=== PATIENT | male | born 1965 | race Caucasian/White ===

== ENCOUNTER 2019-11-21 08:53 | Emergency (ER) | payer SELFPAY ==
[2019-11-21 09:01] VITALS: BP 140/95; PULSE 85; RESP 16; TEMP 36.6; O2SAT 100; BMI 21.7
--- NOTE | 2019-11-21 09:05 | CT_ITS ---
PROCEDURE: CT ABDOMEN PELVIS WO CON CLINICAL INDICATION: LOWER ABD PAIN LOWER ABD PAIN and diarrhea COMPARISON: ABDPELW/O CT ABD PELVIS W/O CONTRAST from 07/28/2015 TECHNIQUE: IV Contrast: None Oral Contrast 20ml Gastroview Axial images obtained with sagittal and coronal reformats. All CT scans at the facility use one or more dose reduction, viz: automated exposure control, ma/kV adjustment per patient size (including targeted exams where dose is matched to indication, i.e. head), or iterative reconstruction technique. FINDINGS: Lower thorax: Minimal bilateral basilar atelectasis ABDOMEN: Liver: No masses or biliary dilatation. Gallbladder: Nondistended. No radio opaque stones. Pancreas: No masses or peripancreatic fluid collections. Spleen: unremarkable Adrenals: unremarkable Kidneys/ureters: The kidneys are normal size and there are no calculi and there is no obstructive uropathy PELVIS: Reproductive: unremarkable Bladder: The bladder is moderately distended with urine and appears normal. The prostate is normal in size. Appendix: I do not definitely identify the appendix but no pericecal inflammatory changes. There are multiple surgical clips right lower quadrant. These were seen previously. ABDOMEN & PELVIS: Stomach bowel: The stomach and small bowel appears grossly normal. There is scattered stool and gas along with oral contrast seen throughout the colon. Peritoneum: No abnormal fluid collections. No obvious inflammatory changes. No free air. Lymph nodes: No enlarged lymph nodes apparent. Vasculature: No evidence of abdominal aortic aneurysm. No retroperitoneal hemorrhage evident. Bones: There are mild degenerate changes lower thoracic and lower lumbar spine. IMPRESSION: Essentially unremarkable study, I see no acute abdominal or pelvic pathology Dictated by: Dr. Loco Patino MD 11/21/2019 11:[address] Loco Patino MD in [facility] 11/21/2019 11:25
--- NOTE | 2019-11-21 09:07 | HMH.EDABDPAI ---
ED Disposition Clinical Impression: Abdominal pain Disposition: Home, Self-Care Condition on Discharge: Good Instructions: DI for Acute Abdomen Additional Instructions: Follow-up with your primary care provider within 24 hours for reevaluation. Return to the emergency department immediately if symptoms are worse. Referrals: Provider,Referral, [Primary Care Provider] - Time of Disposition: 12:05 - Critical Care Critical Care Time: No Attestation: On 11/21/19, the high probability of a clinically significant, sudden or life threatening deterioration of the following system(s) required my full and direct attention, intervention and personal management. The time I documented below is in addition to time spent performing reported procedures but includes the following listed in this critical care notation. Medical Decision Making - Medical Records Medical records reviewed: Yes: I reviewed the patient's medical records. - Cory Inquiry Pt receiving controlled substance: No Vital Signs: 11/21/19 09:01 11/21/19 10:35 Temperature 97.8 F Temperature Source Oral Pulse Rate [Right Radial] 85 69 Respiratory Rate 16 Blood Pressure [Right Arm] 140/95 H 134/66 Blood Pressure Mean [Right Arm] 110 88 Blood Pressure Source [Right Arm] Automatic Cuff Automatic Cuff Blood Pressure Position [Right Arm] Sitting Sitting 02 Sat by Pulse Oximetry 100 99 Oxygen Delivery Method Room Air Room Air - Lab Data Lab Results 11/21/19 09:05: WBC 8.6, RBC 5.24, Hgb 15.0, Hct 48.1, MCV 91.8, MCH 28.6, MCHC 31.2 L, RDW 14.3, Plt Count 346, MPV 6.9 L, Neut % (Auto) 55.9, Lymph % (Auto) 36.7, [place] % (Auto) 5.1, Eos % (Auto) 1.8, Baso % (Auto) 0.4, Neut # (Auto) 4.8, Lymph # (Auto) 3.2, [place] # (Auto) 0.4, Eos # (Auto) 0.2, Baso # (Auto) 0.0 11/21/19 09:05: Sodium 142, Potassium 3.9, Chloride 104, Carbon Dioxide 25, Anion Gap 16.9 H, BUN 12, Creatinine 0.98, Estimated Creat Clear 76, Estimated GFR 80, Est GFR ( Amer) 97, Glucose 115 H, Calcium 8.7, Total Bilirubin 0.2, AST 15, ALT 26, Alkaline Phosphatase 92, Total Protein 7.5, Albumin 4.0, Globulin 3.5 H, Albumin/Globulin Ratio 1.1, Amylase 66, Lipase 114 11/21/19 09:05: Troponin I < 0.02 11/21/19 09:23: Urine Color Yellow, Urine Appearance Clear, Urine pH 5.5, Ur Specific [place] >= 1.030, Urine Protein Negative, Urine Glucose (UA) Negative, Urine Ketones Negative, Urine Blood Negative, Urine Nitrate Negative, Urine Bilirubin Negative, Urine Urobilinogen 0.2, Ur Leukocyte Esterase Negative, Urine RBC None, Urine WBC Occasional, Ur Squamous Epith Cells Occasional, Urine Bacteria None Result diagrams: 11/21/19 09:05 11/21/19 09:05 Orders (Tests/Meds): ED MEDICATIONS Discontinued Medications Generic Name Dose Route Start Last Admin Trade Name Freq PRN Reason Stop Dose Admin Diatrizoate Meglum/Diatrizoate Sod 30 ml 11/21/19 09:07 11/21/19 09:14 Gastrografin 66%-10% 30ml PO 11/21/19 09:08 30 ml ONCE ONE Administration Sodium Chloride 1,000 mls @ 999 mls/hr 11/21/19 09:07 11/21/19 09:14 Sod Chlor 0.9% 1000ml Bag IV 11/21/19 10:07 999 mls/hr .Q1H1M ONE Administration - CT Data CT Scan: Abdomen, Pelvis Time Received: 12:[address] Reviewed: Yes: I have reviewed the patient's CT results, I have viewed the radiologist's interpretation Preliminary Findings: Normal/NAD Findings Narrative: Patient: Osvaldo Worley MR#: [id number] : 1965 Acct:[id number] Age/Sex: 54 / M ADM Date: 11/21/19 Loc: ER Attending Dr: Ordering Physician: Eliud Walters MD Date of Service: 11/21/19 Procedure(s): CT abdomen pelvis wo con Accession Number(s): [id number] cc: Robert Patino ; Eliud Walters MD; Provider,Referral MD~ PROCEDURE: CT ABDOMEN PELVIS WO CON CLINICAL INDICATION: LOWER ABD PAIN LOWER ABD PAIN and diarrhea COMPARISON: ABDPELW/O CT ABD PELVIS W/O CONTRAST from 07/28/2015 TECHN
[2019-11-21 09:15] LABS: Basophils % 0.4 % (0.1-2.0); Eosinophils # 0.2 K/mm3 (0.0-0.4); Eosinophils % 1.8 % (0.1-12.0); Hematocrit 48.1 % (42.0-52.0); Lymphocytes # 3.2 K/mm3 (0.7-4.5); Lymphocytes % 36.7 % (10-50); Mean Corpuscular HGB Conc 31.2 g/dL (31.8-35.4); Mean Corpuscular Hemoglobin 28.6 pg (27.0-31.2); Mean Corpuscular Volume 91.8 fl (80-94); Mean Platelet Volume 6.9 fl (7.4-10.4); Monocytes # 0.4 K/mm3 (0.1-1.0); Monocytes % 5.1 % (1.7-9.3); Neutrophils # 4.8 K/mm3 (1.8-7.8); Neutrophils % 55.9 % (37.0-80.0); Platelet Count 346 K/mm3 (142-424); Red Blood Count 5.24 M/mm3 (4.60-6.20); Red Cell Distribution Width 14.3 % (11.5-17.5); White Blood Count 8.6 K/mm3 (4.8-10.8)
--- NOTE | 2019-11-21 09:18 | PC.NURSE ---
NOTIFIED RAD THAT PT HAS FINISHED DRINKING HIS PO CONTRAST
--- NOTE | 2019-11-21 09:25 | PC.NURSE ---
URINE SENT TO LAB
[2019-11-21 09:28] LABS: Alanine Aminotransferase 26 U/L (12-78); Albumin/Globulin Ratio 1.1 (1.1-1.8); Alkaline Phosphatase 92 U/L (46-116); Amylase 66 U/L (25-115); Anion Gap 16.9 mEq/L (5-15); Aspartate Amino Transferase 15 U/L (15-37); Bilirubin,Total 0.2 mg/dL (0.2-1.0); Blood Urea Nitrogen 12 mg/dL (7-18); Calcium 8.7 mg/dL (8.5-10.1); Carbon Dioxide 25 mmol/L (21.0-32.0); Chloride 104 mmol/L (98-107); Creatinine Clearance Estimated 76 mL/min (50-200); Creatinine,Serum 0.98 mg/dL (0.70-1.30); Estimated Glomerular Filt Rate 80 ml/min (>60); GFR (African American) 97 ML/MIN (>60); Globulin 3.5 gm/dl (1.3-3.2); Glucose 115 mg/dL (74-106); Lipase 114 u/L (73-393); Potassium 3.9 mmoL/L (3.5-5.1); Sodium 142 mmol/L (136-145); Total Protein,Serum 7.5 gm/dL (6.4-8.2)
[2019-11-21 09:32] LABS: Microscopic, Urine URINE MICROSCOPIC (MICROSCOPIC)
[2019-11-21 09:34] LABS: Appearance,Urine CLEAR (Clear); Bilirubin,Urine Negative (Negative); Blood, Urine Negative (Negative); Color,Urine YELLOW (Yellow); Glucose,Urine (UA) Negative (Negative); Ketones,Urine Negative (Negative); Leukocyte Esterase,Urine Negative (Negative); Nitrate,Urine Negative (Negative); PH,Urine 5.5 (5.0-8.5); Protein,Urine Negative (Negative); Specific Gravity, Urine >= 1.030 (1.005-1.030); Urobilinogen,Urine 0.2 EU/dl (0.2)
[2019-11-21 10:08] LABS: Squamous Epithelial Cell,Urine Occasional #/hpf (0-5); WBC,Urine Occasional #/hpf (0-3)
[2019-11-21 10:35] VITALS: BP 134/66; PULSE 69; O2SAT 99
--- NOTE | 2019-11-21 10:53 | PC.NURSE ---
Pt to rad
--- NOTE | 2019-11-21 10:55 | PC.NURSE ---
PT TO RAD
--- NOTE | 2019-11-21 11:12 | PC.NURSE ---
Pt returned from rad
--- NOTE | 2019-11-21 11:12 | PC.NURSE ---
PT RETURNED FROM RAD
[2019-11-21 12:25] LABS: Troponin I < 0.02 ng/ml (0.00-0.06)
--- NOTE | 2019-11-21 12:26 | PC.NURSE ---
Pt up to restroom
[2019-11-21 12:44] VITALS: BP 134/66; PULSE 69; RESP 16; TEMP 36.9; O2SAT 99
== END 2019-11-21 12:45 | disposition home or self-care (01) ==
PROVIDERS: Emergency Provider Emergency Medicine
DX: R10.30 Lower abdominal pain, unspecified (principal); R19.7 Diarrhea, unspecified; Z98.890 Other specified postprocedural states; Z72.0 Tobacco use
CPT/HCPCS: 74176; 80053; 81001; 82150; 83690; 84484; 85025; 96365; 99284

== ENCOUNTER 2020-07-28 01:48 | Emergency (ER) | payer MEDICAID, SELFPAY ==
[2020-07-28 01:51] VITALS: BP 109/78; PULSE 74; RESP 16; TEMP 36.7; O2SAT 98; BMI 21.7
--- NOTE | 2020-07-28 02:03 | XR_ITS ---
PROCEDURE: XR CHEST 2V CLINICAL HISTORY: chest pain COMPARISON: CR XR RIBS BI MIN 4V W CXR1V from 08/09/2019 FINDINGS: The cardiomediastinal silhouette and pulmonary vascularity are within normal limits. The lungs are clear without infiltrates, suspicious nodules, or pleural effusions. There is partial fusion of the T10 and T11 vertebral bodies IMPRESSION: No acute findings. Dictated by: Cyrus Rapp MD 07/28/2020 05:29 Cyrus Rapp MD in [facility] 07/28/2020 05:29
--- NOTE | 2020-07-28 02:04 | ECG_ITS ---
APPROVED REPORT Exam: Resting ECG HR:74 bpm ECG Measurements Heart Rate 74 AXES VA 156 P 69 QRSd 74 QRS -48 QT 388 T 56 QTc 430 <Conclusion> Normal sinus rhythm Left axis deviation,LAHB Abnormal ECG Electronically signed by : Fredrick Saenz, 07/28/2020 16:30:22
--- NOTE | 2020-07-28 02:05 | [facility]H.EDABDPAI ---
ED Disposition Clinical Impression: Epigastric abdominal pain Disposition: Home, Self-Care Condition on Discharge: Good Instructions: DI for Acute Abdomen Additional Instructions: Please call 1 of the providers listed in handout currently accepting new patients for further management of medical problems. You can try some [id number] omeprazole in the meantime. Again, please try to cut back on tobacco and eventually completely cut tobacco out of your life as this will improve your overall health. Immediately return if recurrent chest pain, fever/chills, nausea/vomiting, or any other new concerning symptoms prior to following up with your primary care doctor. - Critical Care Critical Care Time: No Attestation: On , the high probability of a clinically significant, sudden or life threatening deterioration of the following system(s) required my full and direct attention, intervention and personal management. The time I documented below is in addition to time spent performing reported procedures but includes the following listed in this critical care notation. Medical Decision Making - Medical Records Medical records reviewed: Yes: I reviewed the patient's medical records. - Cory Inquiry Pt receiving controlled substance: No Vital Signs: 07/28/20 01:51 07/28/20 02:11 07/28/20 04:12 Temperature 98.1 F Temperature Source Oral Pulse Rate [Right] 74 71 54 L Respiratory Rate 16 18 18 Blood Pressure [Right Arm] 109/78 L 116/79 113/82 Blood Pressure Mean [Right Arm] 88 91 92 Blood Pressure Source [Right Arm] Automatic Cuff Blood Pressure Position [Right Arm] Supine 02 Sat by Pulse Oximetry 98 97 99 Oxygen Delivery Method Room Air Room Air Room Air 07/28/20 05:11 Temperature Temperature Source Pulse Rate [Right] 69 Respiratory Rate 18 Blood Pressure [Right Arm] 113/81 Blood Pressure Mean [Right Arm] 91 Blood Pressure Source [Right Arm] Blood Pressure Position [Right Arm] 02 Sat by Pulse Oximetry 99 Oxygen Delivery Method Room Air - Lab Data Lab Results 07/28/20 02:03: WBC 11.4 H, RBC 4.52 L, Hgb 14.0 L, Hct 41.1 L, MCV 90.8, MCH 30.9, MCHC 34.1, RDW 13.7, Plt Count 336, MPV 7.4, Neut % (Auto) 64.0, Lymph % (Auto) 28.1, [place] % (Auto) 5.8, Eos % (Auto) 1.7, Baso % (Auto) 0.4, Neut # (Auto) 7.3, Lymph # (Auto) 3.2, [place] # (Auto) 0.7, Eos # (Auto) 0.2, Baso # (Auto) 0.1 07/28/20 02:03: Sodium 138, Potassium 3.3 L, Chloride 101, Carbon Dioxide 26, Anion Gap 14.3, BUN 12, Creatinine 0.80, Estimated Creat Clear 92, Estimated GFR 101, Est GFR ( Amer) 122, Glucose 136 H, Calcium 9.0, Total Bilirubin 0.6, AST 31, ALT 17, Alkaline Phosphatase 99, Troponin I < 0.01, Total Protein 7.0, Albumin 4.1, Globulin 2.9, Albumin/Globulin Ratio 1.4, Amylase 91, Lipase 85 07/28/20 05:10: Troponin I < 0.01 Result diagrams: 07/28/20 02:03 07/28/20 02:03 Orders (Tests/Meds): ED MEDICATIONS Discontinued Medications Generic Name Dose Route Start Last Admin Trade Name Freq PRN Reason Stop Dose Admin Belladonna Alkaloids 60 ml 07/28/20 02:03 07/28/20 02:05 Gi Cocktail 60ml Udc PO 07/28/20 02:04 60 ml ONCE ONE Administration ORDERS Category Date Time Status Troponin I Q3H Lab 07/28/20 08:15 Ordered - Radiology Data #1 Image(s): Chest Image Reviewed: Yes I reviewed the patient's radiology results Chest x-ray demonstrates patent airway with no obvious bony abnormalities; heart size within normal limits without widened mediastinum or loss of aortic knob; clear costophrenic angles with some findings consistent with emphysematous changes - ECG Data Tracing #1 I reviewed this ECG and interpreted as documented below: EKG demonstrates sinus rhythm at a rate of 74 bpm; no acute ST elevation/depression; QRS 74 ms; QTC 430 ms Medical Decision Narrative: Patient 54-year-old male presented with epigastric pain and nausea/vomiting. EKG obtained immediately upon arrival [place]
[2020-07-28 02:11] VITALS: BP 116/79; PULSE 71; RESP 18; O2SAT 97
[2020-07-28 02:15] LABS: Basophils # 0.1 K/mm3 (0-0.2); Basophils % 0.4 % (0.1-2.0); Eosinophils # 0.2 K/mm3 (0.0-0.4); Eosinophils % 1.7 % (0.1-12.0); Hematocrit 41.1 % (42.0-52.0); Lymphocytes # 3.2 K/mm3 (0.7-4.5); Lymphocytes % 28.1 % (10-50); Mean Corpuscular HGB Conc 34.1 g/dL (31.8-35.4); Mean Corpuscular Hemoglobin 30.9 pg (27.0-31.2); Mean Corpuscular Volume 90.8 fl (80-94); Mean Platelet Volume 7.4 fl (7.4-10.4); Monocytes # 0.7 K/mm3 (0.1-1.0); Monocytes % 5.8 % (1.7-9.3); Neutrophils # 7.3 K/mm3 (1.8-7.8); Platelet Count 336 K/mm3 (142-424); Red Blood Count 4.52 M/mm3 (4.60-6.20); Red Cell Distribution Width 13.7 % (11.5-17.5); White Blood Count 11.4 K/mm3 (4.8-10.8)
[2020-07-28 02:18] LABS: Alanine Aminotransferase 17 U/L (12-78); Albumin Level 4.1 g/dl (3.5-5.0); Albumin/Globulin Ratio 1.4 (1.1-1.8); Alkaline Phosphatase 99 U/L (38-126); Amylase 91 U/L (30-110); Anion Gap 14.3 mEq/L (5-15); Aspartate Amino Transferase 31 U/L (17-59); Bilirubin,Total 0.6 mg/dl (0.2-1.3); Blood Urea Nitrogen 12 mg/dl (9-20); Carbon Dioxide 26 mmol/L (22.0-30.0); Chloride 101 mmol/L (98-107); Creatinine Clearance Estimated 92 mL/min (50-200); Estimated Glomerular Filt Rate 101 ml/min (>60); GFR (African American) 122 ML/MIN (>60); Globulin 2.9 g/dL (1.3-3.2); Glucose 136 mg/dl (74-100); Lipase 85 U/L (23-300); Potassium 3.3 mmoL/L (3.5-5.1); Sodium 138 mmol/L (136-145)
[2020-07-28 02:42] LABS: Troponin I < 0.01 ng/ml (0.00-0.034)
--- NOTE | 2020-07-28 02:45 | PC.NURSE ---
pt states his pain is 0 of 10
[2020-07-28 04:12] VITALS: BP 113/82; PULSE 54; RESP 18; O2SAT 99
[2020-07-28 05:11] VITALS: BP 113/81; PULSE 69; RESP 18; O2SAT 99
[2020-07-28 05:42] LABS: Troponin I < 0.01 ng/ml (0.00-0.034)
[2020-07-28 05:55] VITALS: BP 113/80; PULSE 70; RESP 16; TEMP 36.9; O2SAT 98
== END 2020-07-28 05:56 | disposition home or self-care (01) ==
PROVIDERS: Emergency Provider Emergency Medicine
DX: R10.13 Epigastric pain (principal); F17.210 Nicotine dependence, cigarettes, uncomplicated
CPT/HCPCS: 71046; 80053; 82150; 83690; 84484; 85025; 93005; 99283